=== PATIENT | male | born 1945 | race Caucasian/White ===

== ENCOUNTER → 2018-03-25 | Outpatient (CLI) | payer OTHER ==
--- NOTE | 2018-03-25 15:06 | RAD ---
EXAM: Right lower extremity venous Doppler sonogram. HISTORY: Pain. And swelling. TECHNIQUE: Wang scale and color Doppler sonographic evaluation of the right lower extremity veins with spectral waveform analysis was performed. FINDINGS: There is normal color flow, normal compressibility and there are normal spectral waveforms in the right lower extremity veins. IMPRESSION: No Doppler evidence of lower extremity venous thrombosis. Electronically signed by: Shavon Reich MD (03/25/2018 3:02 PM) [place] [id number]
== END | disposition home or self-care (01) ==
LOC: US 14:01
PROVIDERS: ATTEND Nurse Practitioner Family
DX: M79.604 Pain in right leg (principal)
CPT/HCPCS: 93971